=== PATIENT | female | born 1945 | race Caucasian/White ===

== ENCOUNTER 2016-08-17 00:01 | Emergency (ER) | payer MEDICARE ==
[~2016-08-17 00:01] MED LIST: BUPROPION XL300 MG PO; CALCIUM 500 + D1 TAB; CITALOPRAM HBR40 MG PO; CRESTOR5 MG PO; ESTRACE42.5 GM VAG; FIBERCON625 MG; KENALOG IN ORABA5 GM TOP; LEVAQUIN PO; LEXAPRO; LORTAB 5/500 TA1 TA2 PO; PERCOCET5/325 PO; PREDNISONE PO; PREMARIN; STOOL SOFTENER; SYNTHROID; SYNTHROID112 MCG PO; SYNTHROID125; SYNTHROID125 PO; VICODIN PO; VISTARIL PO; WELLBUTRIN PO; WELLBUTRIN SR150 MG PO; WELLBUTRIN100 MG PO
== END 2016-08-17 01:10 | disposition home or self-care (01) ==
LOC: CED 00:01
DX: J44.1 Chronic obstructive pulmonary disease with (acute) exacerbation (principal); J20.9 Acute bronchitis, unspecified; J44.0 Chronic obstructive pulmonary disease with (acute) lower respiratory infection; Z79.899 Other long term (current) drug therapy
CPT/HCPCS: 99284